=== PATIENT | female | born 2000 | race Caucasian/White ===

== ENCOUNTER 2024-11-14 14:59 | Emergency (ER) | payer OTHER, SELFPAY ==
[2024-11-14 15:07] VITALS: BP 139/101
--- NOTE | 2024-11-14 19:19 | ED.GENMED ---
History of Present Illness
General
Chief Complaint: Psychiatric Problem
Source: patient
Exam Limitations: none
Time Seen by Provider: 11/14/24 18:34
Nursing documentation reviewed up to this point in time: agreed with
History of Present Illness
History of Present Illness:
Patient is a 24-year-old female with past medical history of anxiety bipolar schizoaffective disorder, presents to the ER for evaluation. She reports ever since August/2024 after having the flu ( and treated with tamflu)she started with weakness
throughout her whole body including bilateral arms and legs pain in her back shoulders and arms numbness and tingling. She was admitted at [facility] and had a lumbar puncture which she tells me had protein in the urine and when they were
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 She was admitted in [facility] in September 2024 that was diagnosed with a functional neurological disorder convert/conversion disorder. She does tell me however that she did not do
rehab afterward ([facility] )and was there for 10 days.
Patient reports since then she has been evaluated by a neurologist, Dr. Cristobal who ordered an EMG which she states was normal and an MRI of the brain with and without contrast. She did have the MRI done with no results yet.
She is coming to the ER today because she does not feel that she is getting anything accomplished and she is still having trouble walking (using walker ) and c/o of continued muscle weakness. she complains of pain all over and numbness tingling
in her extremities.
In addition she presented because of' mental issues.' She reports she is now paranoid and is having racing thoughts. She denies suicidal thoughts. She believes she needs her medications adjusted.
Phy Exam
General Physical Exam
General Presentation: no apparent distress
General age: appears stated age
General Skin: warm and dry
General Habitus: normal
General Mental: alert
General Hydration: appears well hydrated
Eye Exam
Eye Exam: PERRL and EOMI
Eye Exam General: PERRL: bilateral and EOM intact: bilateral
Pupil Exam: Bilateral: round and reactive
Cardiovascular Exam
Cardiovascular Exam: regular rate/rhythm, no murmur and normal peripheral pulses
Pulmonary Exam
Pulmonary Exam: lungs clear and no respiratory distress
Neurological Exam
Neurological Exam: alert, oriented x3, no motor deficits, no sensory deficits and other (Normal dorsiflexion plantarflexion of the toe reflexes bilaterally, patient moving arms and legs equally; able to walk on her own odd gait however no obvious
deficit )
Musculoskeletal Exam
Musculoskeletal Exam: full ROM
Skin Exam
Skin Exam: normal color and warm/dry
Psychiatric Exam
Psychiatric Exam: normal mood/affect
Course
Orders/Labs/Results
Orders:
Orders
11/14/24 17:17
Crisis Consult Urgent
Reason for Consult: anxiety, depression
Vital Signs
Initial and Last Documented VS:
Initial Vital Signs
Temp Pulse Resp BP Pulse Ox
98 F 95 16 139/101 100
11/14/24 15:07 11/14/24 15:07 11/14/24 15:07 11/14/24 15:07 11/14/24 15:07
Last Documented Vital Signs
Temp Pulse Resp BP Pulse Ox
98 F 85 18 138/79 98
11/14/24 15:07 11/14/24 20:15 11/14/24 20:15 11/14/24 20:15 11/14/24 20:15
MDM/Problems Addressed
MDM/Problems Addressed:
I spoke at Length with DR Robert coppola donation specialist for DR Cristobal who reviewed pt's chart/labs/ medical records /office visits. Patient's complaints include muscle pain muscle weakness numbness tingling however since having the flu and receiving
Tamiflu in August.
Pt has been admitted in two separate hospitals [facility] and [facility]. Patient patient has had multiple imaging
MRI of cervical /lumbar/thoracic without contrast that was negative ; trace amount of protein in CSF nonspecific and not greatly elevated as per neurology.
pt as per neuro had full lap panel KAREN/lyme, b12 and other additional blood work all of which were negative.
myositis profile, sarcoid all negative neg for neuromyelitis optica,
possible post viral muscle disease versus neuropathy however EMG is normal . however pt's gait is atypical .
Neurology does not feel that patient needs to be readmitted as she has had a quite extensive workup.
Dr. Jones and will notify help desk agent to expedite appointment for next week.
Regarding this patient's crisis complaints that she feels that her medications are no longer working and she needs an adjustment. No suicidal homicidal thoughts. She is cooperative. She was eval by crisis and patient partial placement program
arranged.
pt is stable for discharge home
Chronic conditions affecting care:
Anxiety bipolar disorder schizophrenia
*Pulse Oximetry
Patient hypoxic: no
*Critical Care Note
Total Time (30-74mins, 75-104mins- exclusive of procedures): Not Applicable
Patient Management
Discussion with other providers: Product Sales Engineer (neuro Dr Jones )
ED Attending Note
-
Portions of this chart may have been created with voice recognition software.� Occasional wrong word or��sound alike� substitutions may have occurred due to the inherent limitations of voice recognition software.
Discharge Plan
Departure
Patient Disposition: Home (Routine Discharge)
Date of Disposition: 11/14/24
Time of Disposition: 22:11
Patient with high blood pressure during this ER visit?: Yes
Discharge Problem:
paresthesias, Muscle pain
Instructions: BLOOD PRESSURE
Referrals:
Samuel Cristobal MD [Non-Admitting Privileges] -
Gabrielle Jones DO [Non-Admitting Privileges] -
Marj Mercado DO [Family Provider] -
Activity Restrictions/Additional Instructions:
discussed please follow up with your neurologist next week.Please call Sunday to make an appointment.
In addition follow up with partial outpatient treatment arranged via crisis.
Return if any worsening of symptoms.
Interventions
Interventions:
*Risk Screen - Suicide Last Done: 11/14/24 15:07
*General Assessment Last Done: 11/14/24 18:00
*Neglect/Abuse Screening Last Done: 11/14/24 15:07
*ED- Fall Risk Assessment Last Done: 11/14/24 18:00
*ED COVID-19 Vaccine History Last Done: 11/14/24 18:00
ED-Psychological Assessment Last Done: 11/14/24 18:00
Discharge Date and Time
Print Language: ROMANSH
[2024-11-14 20:15] VITALS: BP 138/79
[2024-11-14 22:32] VITALS: BP 125/76
== END 2024-11-14 22:38 | disposition home or self-care (01) ==
LOC: EMR 14:59
PROVIDERS: EMERGENCY PHYSICIAN Student in an Organized Health Care Education/Training Program; FAMILY PHYSICIAN Family Medicine
DX: R20.2 Paresthesia of skin (principal); M79.10 Myalgia, unspecified site; F31.9 Bipolar disorder, unspecified; F41.9 Anxiety disorder, unspecified
CPT/HCPCS: 99282